=== PATIENT | male | born 1995 | race Two or more races ===

== ENCOUNTER 2025-01-03 03:19 | Inpatient (IN) | payer SELFPAY ==
[~2025-01-03] VITALS: Ht 167.6 cm; Wt 63.5 kg
[2025-01-03] MEDS ORDERED: ONDANSETRON 4 MG/2 ML VIAL IV PRN (04:15)
[2025-01-03] MEDS ORDERED: MAGNESIUM HYDROXIDE 30 ML LIQUID UDC PO PRN (04:15)
[2025-01-03] MEDS ORDERED: ACETAMINOPHEN 325 MG TABLET PO PRN (04:15)
[2025-01-03] MEDS ORDERED: PIPERACILLIN/TAZOBACTAM/D5W 50 ML IV ONE (04:59)
[2025-01-03] MEDS ORDERED: AZITHROMYCIN 500MG/ D5W 250ML IVPB **ER PYXIS ONLY IV ONE (05:01)
[2025-01-03] MEDS: AZITHROMYCIN IV 500 MG in IV DEXTROSE 5% 250 ML IV ONE (05:30)
[2025-01-03] MEDS: HYDROCODONE/APAP 5-325MG TABLET PO PRN (05:39)
[2025-01-03 06:05] VITALS: BP 114/79; TEMP 98.2; O2SAT 96
[2025-01-03 06:15] LABS: BASOPHILS % (AUTO) 0.4 % (0.0-2.0); EOSINOPHILS # (AUTO) 0.5 K/uL (0.0-0.7); EOSINOPHILS % (AUTO) 6.2 % (0.0-7.0); HEMATOCRIT 27.5 % (36.7-47.1); HEMOGLOBIN 9.3 g/dL (12.5-16.3); LYMPHOCYTES # (AUTO) 0.5 K/uL (0.8-4.8); LYMPHOCYTES % (AUTO) 6.5 % (20.5-51.5); MEAN CORPUSCULAR HEMOGLOBIN 28.6 uug (23.8-33.4); MEAN CORPUSCULAR HGB CONC 34 g/dL (32.5-36.3); MEAN CORPUSCULAR VOLUME 84.6 fL (73.0-96.2); MONOCYTES # (AUTO) 0.5 K/uL (0.1-1.30); MONOCYTES % (AUTO) 5.6 % (0.0-11.0); NEUTROPHILS # (AUTO) 6.7 K/uL (1.8-8.9); NEUTROPHILS % (AUTO) 81.3 % (38.5-71.5); PLATELET COUNT (AUTO) 422 K/uL (152-348); RED BLOOD CELL COUNT(AUTO) 3.26 MIL/uL (4.06-5.63); RED CELL DISTRIBUTION WIDTH 13.6 % (12.1-16.2); WHITE BLOOD COUNT (AUTO) 8.3 K/uL (3.6-10.2)
[2025-01-03 06:22] LABS: DIFFERENTIAL COMMENT 1
[2025-01-03] MEDS: PANTOPRAZOLE SODIUM 40 MG TABLET.DR PO SCH (06:25)
[2025-01-03] MEDS: PIPERACILLIN SODIUM/TAZOBACTAM 3.375 G in IV DEXTROSE 5% 50 ML IV ONE (06:26)
[2025-01-03 06:38] LABS: ALANINE AMINOTRANSFERASE 28 U/L (16-63); ALKALINE PHOSPHATASE 67 U/L (50-136); ASPARTATE AMINOTRANSFERASE 20 U/L (15-37); BILIRUBIN,TOTAL 0.2 mg/dL (0.2-1.0); CALCIUM 8.4 mg/dL (8.5-10.1); CARBON DIOXIDE 27 mmol/L (21-32); CHLORIDE 105 mmol/L (98-107); CREATININE 0.7 mg/dL (0.6-1.3); GLUCOSE 175 mg/dL (74-106); MAGNESIUM 1.8 mg/dL (1.8-2.4); POTASSIUM 3.8 mmol/L (3.5-5.1); SODIUM SERUM 140 mmol/L (136-145); TOTAL PROTEIN, SERUM 6.6 g/dL (6.4-8.2); UREA NITROGEN, BLOOD 11 mg/dL (7-18)
[2025-01-03 07:48] VITALS: BP 114/63; TEMP 98.4; O2SAT 96
[2025-01-03 11:01] VITALS: BP 114/67; TEMP 98.1; O2SAT 97
[2025-01-03] MEDS ORDERED: PIPERACILLIN SODIUM/TAZOBACTAM 3.375 G in IV DEXTROSE 5% 50 ML IV SCH (14:00)
[2025-01-03 15:48] VITALS: BP 109/61; TEMP 97.8; O2SAT 94
[2025-01-03] MEDS: PIPERACILLIN SODIUM/TAZOBACTAM 3.375 G in IV DEXTROSE 5% 100 ML IV SCH (15:50)
[2025-01-03 19:35] VITALS: BP 102/49; TEMP 98.5; O2SAT 92
[2025-01-03 23:40] VITALS: BP 110/59; TEMP 98.2; O2SAT 98
[2025-01-04 05:23] VITALS: BP 91/51; TEMP 98.1; O2SAT 94
[2025-01-04] MEDS: AZITHROMYCIN IV 500 MG in IV DEXTROSE 5% 250 ML IV SCH (06:20)
[2025-01-04 07:01] LABS: BASOPHILS % (AUTO) 0.4 % (0.0-2.0); DIFFERENTIAL COMMENT 1; EOSINOPHILS # (AUTO) 0.4 K/uL (0.0-0.7); EOSINOPHILS % (AUTO) 5.7 % (0.0-7.0); HEMATOCRIT 30.6 % (36.7-47.1); HEMOGLOBIN 10.4 g/dL (12.5-16.3); LYMPHOCYTES # (AUTO) 0.6 K/uL (0.8-4.8); LYMPHOCYTES % (AUTO) 8.2 % (20.5-51.5); MEAN CORPUSCULAR HEMOGLOBIN 28.1 uug (23.8-33.4); MEAN CORPUSCULAR HGB CONC 34 g/dL (32.5-36.3); MEAN CORPUSCULAR VOLUME 83.1 fL (73.0-96.2); MONOCYTES # (AUTO) 0.5 K/uL (0.1-1.30); MONOCYTES % (AUTO) 6.6 % (0.0-11.0); NEUTROPHILS # (AUTO) 6.1 K/uL (1.8-8.9); NEUTROPHILS % (AUTO) 79.1 % (38.5-71.5); PLATELET COUNT (AUTO) 474 K/uL (152-348); RED BLOOD CELL COUNT(AUTO) 3.69 MIL/uL (4.06-5.63); RED CELL DISTRIBUTION WIDTH 13.4 % (12.1-16.2); WHITE BLOOD COUNT (AUTO) 7.7 K/uL (3.6-10.2)
[2025-01-04 07:18] LABS: CALCIUM 8.6 mg/dL (8.5-10.1); CREATININE 0.8 mg/dL (0.6-1.3); MAGNESIUM 1.8 mg/dL (1.8-2.4); PHOSPHOROUS 3.6 mg/dL (2.5-4.9); POTASSIUM 3.9 mmol/L (3.5-5.1)
[2025-01-04 07:21] VITALS: BP 115/68; TEMP 98.3; O2SAT 99
[2025-01-04 10:51] VITALS: BP 112/58; TEMP 98.2; O2SAT 97
[2025-01-04 15:14] VITALS: BP 91/64; TEMP 98.4; O2SAT 98
[2025-01-04 19:55] VITALS: BP 103/74; TEMP 98; O2SAT 98
[2025-01-05 00:29] VITALS: BP 107/58; TEMP 98; O2SAT 98
[2025-01-05 05:39] VITALS: BP 113/63; TEMP 98; O2SAT 97
[2025-01-05 07:32] VITALS: BP 111/57; TEMP 99; O2SAT 96
[2025-01-05 10:57] VITALS: BP 109/60; TEMP 98.5; O2SAT 96
[2025-01-05 15:50] VITALS: BP 109/62; TEMP 98.2; O2SAT 97
[2025-01-05] MEDS: GUAIFENESIN/DEXTROMETHORPHAN 5 ML UDC PO PRN (17:25)
[2025-01-05 19:20] VITALS: BP 101/52; TEMP 98.6; O2SAT 97
[2025-01-06 06:13] VITALS: BP 108/57; TEMP 98.2; O2SAT 97
[2025-01-06 06:43] LABS: BASOPHILS % (AUTO) 0.5 % (0.0-2.0); EOSINOPHILS # (AUTO) 0.7 K/uL (0.0-0.7); EOSINOPHILS % (AUTO) 7.4 % (0.0-7.0); HEMATOCRIT 28.3 % (36.7-47.1); HEMOGLOBIN 9.6 g/dL (12.5-16.3); LYMPHOCYTES # (AUTO) 0.7 K/uL (0.8-4.8); LYMPHOCYTES % (AUTO) 8.1 % (20.5-51.5); MEAN CORPUSCULAR HEMOGLOBIN 28.2 uug (23.8-33.4); MEAN CORPUSCULAR HGB CONC 34 g/dL (32.5-36.3); MEAN CORPUSCULAR VOLUME 82.8 fL (73.0-96.2); MONOCYTES # (AUTO) 0.6 K/uL (0.1-1.30); MONOCYTES % (AUTO) 6.5 % (0.0-11.0); NEUTROPHILS # (AUTO) 7.1 K/uL (1.8-8.9); NEUTROPHILS % (AUTO) 77.5 % (38.5-71.5); PLATELET COUNT (AUTO) 452 K/uL (152-348); RED BLOOD CELL COUNT(AUTO) 3.42 MIL/uL (4.06-5.63); RED CELL DISTRIBUTION WIDTH 13.5 % (12.1-16.2); WHITE BLOOD COUNT (AUTO) 9.1 K/uL (3.6-10.2)
[2025-01-06 06:45] LABS: DIFFERENTIAL COMMENT 1
[2025-01-06 08:05] LABS: ERYTHROCYTE SEDIMENTATION RATE 100 MM/HR (0-15)
[2025-01-06 09:11] LABS: HIV-1 p24 ANTIGEN NON REACTIVE (NONREACTIVE); HIV-1/2 ANTIBODY NON REACTIVE (NONREACTIVE)
[2025-01-06] MEDS ORDERED: IBUPROFEN 600 MG TABLET PO PRN (11:00)
[2025-01-06 12:00] VITALS: BP 114/59; TEMP 97.7; O2SAT 97
[2025-01-06 12:24] LABS: *RHEUMATOID FACTOR SCREEN NEGATIVE (NEGATIVE)
[2025-01-06 15:45] VITALS: BP 94/45; TEMP 98.3; O2SAT 97
[2025-01-08 15:11] LABS: *ANTI-SCLERODERMA-70 AB <0.2 AI (0.0-0.9); *RNP ANTIBODIES 6.7 AI (0.0-0.9); *SJOGREN'S ANTI-SS-A <0.2 AI (0.0-0.9); *SJOGREN'S ANTI-SS-B <0.2 AI (0.0-0.9); *SMITH ANTIBODIES <0.2 AI (0.0-0.9); ANTI-DNA(DS) AB, QN <1 IU/mL (0-9); ANTI-NUCLEAR AB DIRECT Positive (Negative)
[2025-01-09 00:07] LABS: HEPATITIS C VIRUS ANTIBODY Non Reactive (Non Reactive)
== END 2025-01-06 16:45 | disposition left against medical advice (07) | DRG 194 ==
LOC: TELE3 03:19 → MEDSURG3 01-05 08:30
PROVIDERS: ADMIT Nurse Practitioner Family
DX: J15.9 Unspecified bacterial pneumonia (principal); E44.0 Moderate protein-calorie malnutrition; J15.69 Pneumonia due to other Gram-negative bacteria; E88.09 Other disorders of plasma-protein metabolism, not elsewhere classified; D64.9 Anemia, unspecified; R07.89 Other chest pain; R73.9 Hyperglycemia, unspecified; R79.89 Other specified abnormal findings of blood chemistry; M54.9 Dorsalgia, unspecified; Z86.16 Personal history of COVID-19
CPT/HCPCS: 36415; 71045; 83735; 84100; 85025; 85651; 86038; 86140; 86430; 86480; 86606; 86803; 87806; A4663; G0378; J0456; J2543; J7050